=== PATIENT | male | born 1980 | race Caucasian/White ===

== ENCOUNTER 2019-07-21 07:38 | Emergency (ER) | payer BC ==
[~2019-07-21] VITALS: Ht 165.1 cm; Wt 55.4 kg
--- NOTE | 2019-07-21 07:57 | NUR ---
FIRST CONTACT WITH PT. PT C/O SEVERE BILAT UPPER/EPIGASTRIC ABD PAIN X 7 DAYS. LBM - TODAY, STATED DIARRHEA THAT JUST STRATED THIS AM. PT'S AOX4. RESPS EVEN AND UNLABORED. BP/SPO2 MONITORS IN PLACE. CALL LIGHT WITHIN REACH. EDMD AT BEDSIDE TO EVALUATE AT THIS TIME.
[2019-07-21] MEDS ORDERED: SODIUM CHLORIDE 0.9% 1,000ML IVBOLUS ONE (08:00)
[2019-07-21] MEDS ORDERED: ONDANSETRON 2MG/ML, 2ML IVPush ONE (08:00)
[2019-07-21] MEDS ORDERED: MAALOX/HYOSCYAMINE/LIDOCAINE 45 ML BTL PO ONE ×2 (08:00→11:00)
[2019-07-21] MEDS ORDERED: SODIUM CHLORIDE FLUSH 10ML SYR IVF ONE (08:00)
[2019-07-21] MEDS ORDERED: HYDROmorphone 2 MG/ML, 1ML IVPush PRN (08:00)
--- NOTE | 2019-07-21 08:23 | NUR ---
PT REFUSED ALL MEDS AT THIS TIME. EDMD NOTIFIED. NS INFUSING AT THIS TIME. PT TOLERATED WELL.
[2019-07-21 08:42] LABS: BASOPHILS # (AUTO) 0.01 x10^3/uL (0-0.1); BASOPHILS % (AUTO) 0 % (0-1); EOSINOPHILS # (AUTO) 0.06 x10^3/uL (0-0.4); EOSINOPHILS % (AUTO) 1 % (1-7); LYMPHOCYTES # (AUTO) 1.87 x10^3/uL (1-3.4); LYMPHOCYTES % (AUTO) 43 % (22-44); MD NO; MEAN CORPUSCULAR HEMOGLOBIN 31.6 pg (27.5-34.5); MEAN CORPUSCULAR HGB CONC 34.2 g/dL (33.2-36.2); MEAN CORPUSCULAR VOLUME 92.4 fL (81-97); MEAN PLATELET VOLUME 7.1 fL (7.4-10.4); MONOCYTES # (AUTO) 0.38 x10^3/uL (0.2-0.8); MONOCYTES % (AUTO) 9 % (2-9); NEUTROPHILS # (AUTO) 2.03 x10^3/uL (1.8-6.8); NEUTROPHILS % (AUTO) 47 % (42-75); PLATELET COUNT 271 x10^3/uL (130-400); RED CELL DISTRIBUTION WIDTH 12.7 % (9.4-14.8)
[2019-07-21 08:46] LABS: ALBUMIN 3.9 g/dL (3.4-5.0); ANION GAP 5 mmol/L (5-15); CALCIUM 8.4 mg/dL (8.5-10.1); CHLORIDE 108 mmol/L (98-107)
[2019-07-21 08:49] LABS: ALANINE AMINOTRANSFERASE 21 U/L (12-78); ALKALINE PHOSPHATASE 37 U/L (45-117); BILIRUBIN,TOTAL 0.5 mg/dL (0.2-1.0); CREATININE 1.38 mg/dL (0.7-1.3); TOTAL PROTEIN 6.9 g/dL (6.4-8.2)
--- NOTE | 2019-07-21 08:56 | NUR ---
PT AMB TO BR WITH STEADY GAIT.
--- NOTE | 2019-07-21 09:05 | NUR ---
PT IN CT AT THIS TIME.
--- NOTE | 2019-07-21 09:10 | NUR ---
PT BACK TO ROOM FROM CT AT THIS TIME.
[2019-07-21] MEDS ORDERED: OMNIPAQUE 350 MG/ML, 100ML BOTTLE ONE (09:12)
--- NOTE | 2019-07-21 10:16 | NUR ---
PT RESTING IN [facility]. PT'S AOX4. RESPS EVEN AND UNLABORED. BP/SPO2 MONITORS IN PLACE. CALL LIGHT WITHIN REACH. AWAITING DISPO.
[2019-07-21] MEDS ORDERED: MAALOX/HYOSCYAMINE/LIDOCAINE 45 ML BTL ONE (10:29)
[2019-07-21] MEDS ORDERED: HYDROmorphone 2 MG/ML, 1ML ONE (10:29)
--- NOTE | 2019-07-21 10:38 | NUR ---
pt requesting medications at this time. pt medicated per emar. pt tolerated well.
[2019-07-21 10:58] VITALS: BP 102/64
--- NOTE | 2019-07-21 11:48 | NUR ---
EDMD AT BEDSIDE TO EXPLAIN ALL RESULTS AT THIS TIME.
--- NOTE | 2019-07-21 12:19 | NUR ---
Patient given discharge instructions and they have confirmed that they understand the instructions. Patient ambulatory with steady gait.
== END 2019-07-21 12:20 | disposition home or self-care (01) ==
LOC: ED 10:12
DX: R10.9 Unspecified abdominal pain (principal)
CPT/HCPCS: 36415; 74177; 80053; 83605; 83690; 85025; 96361; 96374; 99284; J1170; J7030; Q9967

== ENCOUNTER 2019-12-31 08:38 | Emergency (ER) | payer BC ==
[~2019-12-31] VITALS: Ht 162.6 cm; Wt 54.6 kg
--- NOTE | 2019-12-31 09:00 | NUR ---
PT STATES HE HAS HAD CHEST TIGHTNESS FOR OVER A MONTH, WORSENING PAST FEW DAYS. PT DENIES INCREASED SOB OR COUGH.
[2019-12-31 10:24] LABS: BASOPHILS # (AUTO) 0.03 x10^3/uL (0-0.1); BASOPHILS % (AUTO) 1 % (0-1); EOSINOPHILS # (AUTO) 0.11 x10^3/uL (0-0.4); EOSINOPHILS % (AUTO) 2 % (1-7); LYMPHOCYTES # (AUTO) 2.71 x10^3/uL (1-3.4); LYMPHOCYTES % (AUTO) 46 % (22-44); MD NO; MEAN CORPUSCULAR HEMOGLOBIN 31.2 pg (27.5-34.5); MEAN CORPUSCULAR HGB CONC 33.8 g/dL (33.2-36.2); MEAN PLATELET VOLUME 7.2 fL (7.4-10.4); MONOCYTES # (AUTO) 0.46 x10^3/uL (0.2-0.8); MONOCYTES % (AUTO) 8 % (2-9); NEUTROPHILS % (AUTO) 44 % (42-75); PLATELET COUNT 289 x10^3/uL (130-400); RED BLOOD COUNT 4.91 x10^6/uL (4.38-5.82); RED CELL DISTRIBUTION WIDTH 12.8 % (9.4-14.8)
[2019-12-31 10:33] LABS: ANION GAP 5 mmol/L (5-15); CALCIUM 9.1 mg/dL (8.5-10.1); CHLORIDE 107 mmol/L (98-107); CREATININE 1.36 mg/dL (0.7-1.3)
[2019-12-31 10:34] LABS: ALANINE AMINOTRANSFERASE 27 U/L (12-78); ALBUMIN 4.2 g/dL (3.4-5.0)
[2019-12-31 10:38] LABS: ALKALINE PHOSPHATASE 43 U/L (45-117); BILIRUBIN,TOTAL 0.4 mg/dL (0.2-1.0); TOTAL PROTEIN 7.4 g/dL (6.4-8.2); TROPONIN I < 0.015 ng/mL (0.000-0.045)
[2019-12-31] MEDS ORDERED: ALBUTEROL SULFATE 2.5 MG/3 ML NPPB ONE (11:00)
--- NOTE | 2019-12-31 11:06 | NUR ---
NEB ADMINISTERED. PT STATES HE DOESNT HAVE RELIEF FROM NEB. STATES HIS FEELS TIGHT IN HIS CHEST.
[2019-12-31 11:09] VITALS: BP 124/81
--- NOTE | 2019-12-31 11:42 | NUR ---
Patient/Caregiver given discharge instructions and they have confirmed that they understand the instructions. Patient ambulatory with steady gait.
== END 2019-12-31 11:44 | disposition home or self-care (01) ==
LOC: ED 11:30
DX: R06.00 Dyspnea, unspecified (principal); R05 Cough; I30.9 Acute pericarditis, unspecified; Z87.891 Personal history of nicotine dependence
CPT/HCPCS: 36415; 71045; 80053; 83880; 84484; 85025; 85379; 93005; 94640; 99285; J7613

== ENCOUNTER 2020-10-13 22:36 | Emergency (ER) | payer BC ==
[~2020-10-13] VITALS: Ht 162.6 cm; Wt 56.0 kg
[2020-10-13] MEDS ORDERED: LORazepam 2 MG/ML, 1ML IVPush ONE (23:30)
[2020-10-13] MEDS ORDERED: SODIUM CHLORIDE 0.9% 1,000ML IVBOLUS ONE (23:30)
[2020-10-13] MEDS ORDERED: SODIUM CHLORIDE FLUSH 10ML SYR IVF ONE (23:30)
[2020-10-13 23:35] LABS: BASOPHILS % (AUTO) 0 % (0-1); EOSINOPHILS % (AUTO) 0 % (1-7); LYMPHOCYTES % (AUTO) 15 % (22-44); MEAN CORPUSCULAR HGB CONC 34.4 g/dL (33.2-36.2); MEAN PLATELET VOLUME 7.3 fL (7.4-10.4); MONOCYTES % (AUTO) 2 % (2-9); NEUTROPHILS % (AUTO) 83 % (42-75); PLATELET COUNT 252 x10^3/uL (130-400); RED BLOOD COUNT 5.05 x10^6/uL (4.38-5.82); RED CELL DISTRIBUTION WIDTH 12.8 % (9.4-14.8)
[2020-10-13 23:37] LABS: MD NO
[2020-10-13] MEDS ORDERED: LORazepam 2 MG/ML, 1ML ONE (23:37)
[2020-10-13 23:47] LABS: ALANINE AMINOTRANSFERASE 22 U/L (12-78); ALBUMIN 4.2 g/dL (3.4-5.0); ANION GAP 6 mmol/L (5-15); CALCIUM 9.4 mg/dL (8.5-10.1); CHLORIDE 109 mmol/L (98-107); CREATININE 1.19 mg/dL (0.7-1.3)
[2020-10-13 23:57] LABS: ALKALINE PHOSPHATASE 48 U/L (45-117); BILIRUBIN,TOTAL 0.6 mg/dL (0.2-1.0); T4 (THYROXINE) 12.8 mcg/dL (4.5-12.1); TOTAL PROTEIN 7.6 g/dL (6.4-8.2); TROPONIN I < 0.015 ng/mL (0.000-0.045)
--- NOTE | 2020-10-14 00:15 | NUR ---
PT REPORTS HE "DOESN'T FEEL THAT DIFFERENT" AFTER IVF AND ATIVAN. STATES, "IT'S NOT ANXIETY. I NEVER HAVE ANXIETY. MY HEART RATE IS NORMALLY 60-70". INFORMED PT HE SHOULD F/U WITH PCP OR COME BACK TO ED IF SYMPTOMS DON'T RESOLVE.
--- NOTE | 2020-10-14 00:59 | NUR ---
REPORTED TO HARVINDER MAAY.
[2020-10-14 01:09] VITALS: BP 130/79
--- NOTE | 2020-10-14 01:10 | NUR ---
AFTER ALL QUESTIONS ANSWERED- PATIENT DISCHARGED IN THE CARE OF FAMILY
== END 2020-10-14 01:11 | disposition home or self-care (01) ==
LOC: ED 23:06
DX: R07.2 Precordial pain (principal); R42 Dizziness and giddiness; R07.89 Other chest pain; R94.31 Abnormal electrocardiogram [ECG] [EKG]; Z87.891 Personal history of nicotine dependence
CPT/HCPCS: 36415; 71045; 80053; 84436; 84443; 84484; 85025; 85379; 87806; 93005; 96361; 96374; 99285; J2060; J7030; G0475